=== PATIENT | male | born 1975 | race Caucasian/White ===

== ENCOUNTER 2023-07-22 11:34 | Outpatient (OUT) | payer MEDICARE, SELFPAY ==
[2023-07-22 12:06] LABS: Basophils Percent Auto 0.4 % (0.2-2.0); Eosinophils Absolute Auto 0.2 10^3/uL (0.0-0.7); Eosinophils Percent Auto 2.2 % (0.9-7.0); Hematocrit 50.4 % (42.0-54.0); Hemoglobin 16.5 g/dL (14.0-18.0); Immature Granulocytes Abs Auto 0.02 10^3/uL (0.00-0.03); Immature Granulocytes Pct Auto 0.3 % (0.0-0.5); Lymphocytes Absolute Auto 2.8 10^3/uL (1.2-3.8); Lymphocytes Percent Auto 38.8 % (20.5-60.0); Mean Corpuscular HGB Conc 32.7 g/dL (29.9-35.2); Mean Corpuscular Volume 88.7 fL (80.0-94.0); Mean Platelet Volume 9.8 fL (9.5-13.5); Monocytes Absolute Auto 0.4 10^3/uL (0.3-0.8); Monocytes Percent Auto 5.5 % (1.7-12.0); Neutrophils Absolute Auto 3.8 10^3/uL (1.4-6.5); Neutrophils Percent Auto 52.8 % (43.0-75.0); Platelet Count 197 10^3/uL (150-450); Red Blood Count 5.68 10^6/uL (4.70-6.10); Red Cell Distribution Width 12.9 % (11.0-15.0); White Blood Count 7.2 10^3/uL (4.0-11.0)
[2023-07-22 12:59] LABS: Estimated Average Glucose 108 mg/dL; Glycohemoglobin A1C 5.4 % (4.5-6.2)
[2023-07-22 13:18] LABS: Alanine Aminotransferase 42 U/L (16-63); Albumin Globulin Ratio 0.9; Albumin Level 3.4 g/dL (3.4-5.0); Alkaline Phosphatase 80 U/L (46-116); Anion Gap 11.6; Aspartate Amino Transferase 22 U/L (15-37); BUN Creatinine Ratio 19.1; Bilirubin Total 0.8 mg/dL (0.2-1.0); Calcium 9.4 mg/dL (8.5-10.1); Chloride 104 mmol/L (98-107); Chol HDL Ratio 5.1; Cholesterol 147 mg/dL (<=200); Estimated GFR (African America >60 (>=60); Estimated GFR (Non-African Ame >60 (>=60); Free T3 2.76 pg/mL (2.18-3.98); Globulin 3.7 g/dL; Glucose 122 mg/dL (74-106); HDL Cholesterol 29 mg/dL (40-60); Potassium 4.6 mmol/L (3.5-5.1); Sodium 139 mmol/L (136-145); Total Protein 7.1 g/dL (6.4-8.2); Triglycerides 160 mg/dL (<=150); Uric Acid 5.8 mg/dL (3.5-7.2)
[2023-07-22 13:28] LABS: Prostate Specific Antigen Scrn 3.54 ng/mL (<=4.00)
[2023-07-24 16:07] LABS: Insulin 39.6 uIU/mL (2.6-24.9)
== END 2023-07-22 11:35 | disposition home or self-care (01) ==
LOC: LAB 11:36
PROVIDERS: PCP Nurse Practitioner Family; Visit Provider Nurse Practitioner Family
DX: E78.5 Hyperlipidemia, unspecified (principal); R97.20 Elevated prostate specific antigen [PSA]; E03.9 Hypothyroidism, unspecified; Z68.43 Body mass index [BMI] 50.0-59.9, adult
CPT/HCPCS: 36415; 80053; 80061; 83036; 83525; 84436; 84443; 84481; 84550; 85025; G0103

== ENCOUNTER 2024-05-10 11:11 | Outpatient (OUT) | payer MEDICARE, SELFPAY ==
--- NOTE | 2024-05-10 11:21 | XR_ITS ---
[facility] [place] [id number] Patient Name: DINAH SANTIAGO MRN: [id number] date: 1975 Sex: M Assigned Patient Location: RAD Current Patient Location: RAD Accession/Order Number: [id number] Exam Date: 05/10/2024 11:27 Report Date: 05/10/2024 12:55 At the request of: GLENN SPENCER Procedure: XR forearm LT 2V PROCEDURE: XR wrist RT min 3V, XR forearm LT 2V COMPARISON: None. HISTORY: Right Wrist Pain FINDINGS: BONES:No acute fracture or dislocation. Minimal degenerative changes of the elbow. SOFT TISSUES:Negative. No visible soft tissue swelling. EFFUSION:None visible. OTHER: No abnormality in the region of the patient's palpable abnormality demarcated with the BB marker along the radial distal forearm XR/XR forearm LT 2V IMPRESSION: No acute abnormality of the wrist or forearm Electronically authenticated by: CHER MTZ Date: 05/10/2024 12:55
--- NOTE | 2024-05-10 11:21 | XR_ITS ---
[facility] [place] [id number] Patient Name: DINAH SANTIAGO MRN: [id number] date: 1975 Sex: M Assigned Patient Location: RAD Current Patient Location: RAD Accession/Order Number: [id number] Exam Date: 05/10/2024 11:27 Report Date: 05/10/2024 12:55 At the request of: GLENN SPENCER Procedure: XR wrist RT min 3V PROCEDURE: XR wrist RT min 3V, XR forearm LT 2V COMPARISON: None. HISTORY: Right Wrist Pain FINDINGS: BONES:No acute fracture or dislocation. Minimal degenerative changes of the elbow. SOFT TISSUES:Negative. No visible soft tissue swelling. EFFUSION:None visible. OTHER: No abnormality in the region of the patient's palpable abnormality demarcated with the BB marker along the radial distal forearm XR/XR wrist RT min 3V IMPRESSION: No acute abnormality of the wrist or forearm Electronically authenticated by: CHER MTZ Date: 05/10/2024 12:55
== END 2024-05-10 11:12 | disposition home or self-care (01) ==
LOC: RAD 11:14
PROVIDERS: PCP Nurse Practitioner Family; Visit Provider Nurse Practitioner Family
DX: M25.531 Pain in right wrist (principal); M79.602 Pain in left arm
CPT/HCPCS: 73090; 73110

== ENCOUNTER 2024-06-09 08:01 | Outpatient (OUT) | payer MEDICARE, SELFPAY ==
--- NOTE | 2024-06-09 | US_ITS ---
The [address] [address] Patient Name: DINAH SANTIAGO MRN: [id number] date: 1975 Sex: M Assigned Patient Location: US Current Patient Location: US Accession/Order Number: [id number] Exam Date: 06/09/2024 09:22 Report Date: 06/09/2024 09:25 At the request of: GLENN SPENCER Procedure: US renal bladder US renal bladder 06/09/2024 9:01 AM SIGNS AND SYMPTOMS: ^R30.0 DYSURIA COMPARISON: None. FINDINGS: Right kidney measures 10.8 x 5.7 x 6.5 cm. The right renal cortex measures 1.3 cm in thickness. There is no hydronephrosis or mass. There is an echogenic focus with thick artifact measuring up to 2 mm in the right renal collecting system near the interpolar region possibly representing a small stone. Left kidney measures 11.9 x 5.3 x 6.1 cm . The left renal cortex measures 1.6 cm in thickness. There is no hydronephrosis or mass. The urinary bladder is morphologically normal. No free fluid is seen in the pelvis. Before voiding, the bladder measures 3.5 x 3.8 x 4.3 cm, which corresponds to an estimated volume of 40.5 mL . After voiding no post void residual is visualized. US/US renal bladder IMPRESSION: No hydronephrosis or mass. No visible post void residual within the bladder. There is an echogenic focus with thick artifact measuring up to 2 mm in the right renal collecting system near the interpolar region possibly representing a small stone. Impression dictated by: Denis Lee M.D.06/09/2024 9:25 AM Dictation Location: [place] [address] Electronically authenticated by: [id number] Y Date: 06/09/2024 09:25
--- OUTSIDE RECORDS SUMMARY | 2024-06-09 08:03 | XMS_ITS | CCD ---
Author Organization [place] [employer] Inform ion Partnership [facility] Care Team Providers Care Rn Family Name Role Phone GLENN SPENCER Admitting Unavailable GLENN SPENCER Attending Unavailable TJ, GLENN Primary Care Unavailable TJ, GLENN Consulting Unavailable TJ, GLENN Admitting Unavailable TJ, GLENN Attending Unavailable TJ, GLENN Primary Care Unavailable TJ, GLENN Consulting Unavailable Allergies Allergy Classification Reported Allergen(s) Allergy Type Date of Onset Reaction(s) Facility (1 source) Penicillin Drug Allergy 12-28-2016 [facility] Repository Problems Active Problems Problem Classification Problem Date Documented Date Episodic/Chronic Diabetes mellitus without complication (2 sources) Other abnormal glucose; Translations: [Hyperglycemia, unspecified] Onset: 08-18-2021 Episodic Disorders of lipid metabolism (2 sources) Hyperlipidemia, unspecified; Translations: [Elevated Lipoprotein(a)] Onset: 08-18-2021 Chronic Immunizations and screening for infectious disease (1 source) Encounter for screening for infections with a predominantly sexual mode of transmission; Translations: [ENC SCREEN INFECTIONS SEXL TRANSMS] Onset: 08-01-2022 Episodic Malaise and fatigue (4 sources) Other fatigue; Translations: [OTHER FATIGUE] Onset: 07-23-2022 Episodic Other nutritional; endocrine; and metabolic disorders (1 source) Metabolic syndrome; Translations: [METABOLIC SYNDROME] Onset: 08-18-2021 Chronic Other screening for suspected conditions (not mental disorders or infectious disease) (1 source) Encounter for screening for malignant neoplasm of prostate; Translations: [ENC SCREEN MALIG NEOPLASM PROSTATE] Onset: 08-01-2022 Episodic Past or Other Problems Problem Classification Problem Date Documented Da te Episodic/Chronic Deficiency and other anemia (1 source) Anemia, unspecified; Translations: [ANEMIA UNSPECIFIED] Onset: 08-18-2021 Episodic Other non-traumatic joint disorders (1 source) Pain in unspecified joint; Translations: [PAIN IN UNSPECIFIED JOINT] Onset: 08-18-2021 Episodic Results Test Name Value Interpretation Reference Range Facility HEPATITIS PANEL, ACUTEon HBsAg Screen Negative Normal Negative [facility] Comment on above: Performed By: #### I NSULIN #### [facility] [address] [address] [address] Sonja Farris HCV AB Non-Reactive Normal Non Reactive [facility] Comment on above: Performed By: #### I NSULIN #### [facility] [address] [address] [address] Sonja Farris Hep A Ab, IgM Negative Normal Negative [facility] Comment on above: Performed By: #### I NSULIN #### [facility] [address] [address] [address] Sonja Farris Hep B Core Ab, IgM Negative Normal Negative [facility] Comment on above: Performed By: #### I NSULIN #### [facility] [address] [address] [address] Sonja Farris Interpretation: Comment Normal [facility] Comment on above: Result Comment: Not infected with HCV unless early or acute infection is suspected (which may be delayed in an immunocompromised individual), or other evidence exists to indicate HCV infection. Performed By: #### I NSULIN #### [facility] [address] [address] [address] Sonja Farris HERPES SIMPLEX 1/2 IGGon HSV 1 IgG, Type Spec 32.30 index Critically high 0.00-0.90 [facility] Comment on above: Result Comment: Nega tive <0.91 Equivocal 0.91 - 1.09 Positive >1.09 Note: Negative indicates no antibodies detected to HSV-1. Equivocal may suggest early infection. If clinically appropriate, retest at later date. Positive indicates antibodies detected to HSV-1. Performed By: #### H SV IGG #### [facility] [address] [address] [address] Sonja Farris HSV 2 IgG Type Spec <0.91 Normal 0.00-0.90 [facility] Comment on above: Result Comment: Nega tive <0.91 Equivocal 0.91 - 1.09 Positive >1.09 Note: Negative indicates no HSV-2 antibodies detected. Positive indicates HSV-2 antibodies detected. Equivocal and low positive HSV-2 screens (Index 0.91-5.00) may be false positive and are reflexed to supplemental testing in accordance with CDC guidelines. Performed By: #### H SV IGG #### [facility] [address] [place] [address] Dr. Sonja Farris HIV 1 AND 2 WITH REFLEXon HIV Screen 4th Generation wRfx Non-Reactive Normal Non Reactive [facility] Comment on above: Result Comment: HIV Negative HIV-1/HIV-2 antibodies and HIV-1 p24 antigen were NOT detected. There is no laboratory evidence of HIV infection. Performed By: #### H IV12 #### [facility] [address] [place] [address] Dr. Sonja Farris INSULINon 07-24-2022 Insulin 34.0 uIU/mL Critically high 2.6-24.9 [facility] Comment on above: Performed By: #### I NSULIN #### [facility] [address] [place] [address] Dr. Sonja Farris RPR QUANTon 07-24-2022 Rapid Plasma Reagin, Quant Non-Reactive Normal NonRea<1:1 [facility] Comment on above: Result Comment: Plea se Note: This test does not meet current guidelines for screening and diagnosis of syphilis. This test is intended for following treatment response in patients being treated for syphilis infection. To screen for syphilis infection, a reflex cascade that includes both RPR and a treponema-specific assay should be utilized, such as Treponema pallidum (Syphilis) Screening [place] (762669) or Rapid Plasma Reagin (RPR) Test With Reflex to Quantitative RPR and Confirmatory Treponema pallidum Antibodies (553290). Performed By: #### I NSULIN #### [facility] [address] [place] [address] Dr. Sonja Farris CBC AUTO DIFFon 07-23-2022 BASO # 0.0 103/ul Normal 0.0-0.1 [facility] Comment on above: Performed By: #### I NSULIN #### [facility] [address] [place] [address] Dr. Sonja Farris Basophils/100 WBC (Bld) 0.2 % Normal 0.2-2.0 [facility] Comment on above: Performed By: #### I NSULIN #### [facility] [address] [place] [address] Dr. Sonja Farris EO # 0.2 103/ul Normal 0.0-0.7 [facility] Comment on above: Performed By: #### I NSULIN #### [facility] [address] [place] [address] Dr. Sonja Farris Eosinophils/100 WBC (Bld) 2.3 % Normal 0.9-7.0 [facility] Comment on above: Performed By: #### I NSULIN #### [facility] [address] [place] [address] Dr. Sonja Farris Erythrocyte distribution width (RBC) [Ratio] 12.6 % Normal 11.0-15.0 [facility] Comment on above: Performed By: #### I NSULIN #### [facility] [address] [place] [address] Dr. Sonja Farris Hematocrit (Bld) [Volume fraction] 48.2 % Normal 42.0-54.0 [facility] Comment on above: Performed By: #### I NSULIN #### [facility] [address] [place] [address] Dr. Sonja Farris Hemoglobin (Bld) [Mass/Vol] 16.4 g/dL Normal 14.0-18.0 [facility] Comment on above: Performed By: #### I NSULIN #### [facility] [address] [place] [address] Dr. Sonja Farris IG # 0.03 10e3/ul Normal 0.00-0.03 [facility] Comment on above: Performed By: #### I NSULIN #### [facility] [address] [place] [address] Dr. Sonja Farris IG % 0.3 % Normal 0.0-0.5 [facility] Comment on above: Performed By: #### I NSULIN #### [facility] [address] [address] [address] Sonja Farris LYMPH # 4.1 103/ul Critically high 1.2-3.8 [facility] Comment on above: Performed By: #### I NSULIN #### [facility] [address] [place] [address] Dr. Sonja Farris Lymphocytes/100 WBC (Bld) 47.0 % Normal 20.5-60.0 [facility] Comment on above: Performed By: #### I NSULIN #### [facility] [address] [place] [address] Dr. Sonja Farris MANUAL DIFF REQ NO Normal [facility] Comment on above: Performed By: #### I NSULIN #### [facility] [address] [place] [address] Dr. Sonja Farris MCH (RBC) [Entitic mass] 29.5 pg Normal 25.9-34.0 [facility] Comment on above: Performed By: #### I NSULIN #### [facility] [address] [place] [address] Dr. Sonja Farris MCHC (RBC) [Mass/Vol] 34.0 g/dL Normal 29.9-35.2 [facility] Comment on above: Performed By: #### I NSULIN #### [facility] [address] [place] [address] Dr. Sonja Farris MCV (RBC) [Entitic vol] 86.7 fL Normal 80.0-94.0 [facility] Comment on above: Performed By: #### I NSULIN #### [facility] [address] [place] [address] Dr. Sonja Farris MONO # 0.5 103/ul Normal 0.3-0.8 [facility] Comment on above: Performed By: #### I NSULIN #### [facility] [address] [place] [address] Dr. Sonja Farris Monocytes/100 WBC (Bld) 5.8 % Normal 1.7-12.0 [facility] Comment on above: Performed By: #### I NSULIN #### [facility] [address] [address] [address] Sonja Farris NEUT # 3.9 103/ul Normal 1.4-6.5 [facility] Comment on above: Performed By: #### I NSULIN #### [facility] [address] [place] [address] Dr. Sonja Farris Neutrophils/100 WBC (Bld) 44.4 % Normal 43.0-75.0 [facility] Comment on above: Performed By: #### I NSULIN #### [facility] [address] [place] [address] Dr. Sonja Farris Platelet mean volume (Bld) [Entitic vol] 9.9 fL Normal 9.5-13.5 [facility] Comment on above: Performed By: #### I NSULIN #### [facility] [address] [place] [address] Dr. Sonja Farris PLT 210 103/ul Normal 150-450 [facility] Comment on above: Performed By: #### I NSULIN #### [facility] [address] [place] [address] Dr. Sonja Farris RBC 5.56 106/ul Normal 4.70-6.10 [facility] Comment on above: Performed By: #### I NSULIN #### [facility] [address] [place] [address] Dr. Sonja Farris WBC 8.8 103/ul Normal 4.0-11.0 [facility] Comment on above: Performed By: #### I NSULIN #### [facility] [address] [place] [address] Dr. Sonja Farris FREE THYROXINE INDEX T7on FTI 2.28 Normal 1.30-4.50 [facility] Comment on above: Performed By: #### L IPID, URIC, T7, CMP, TSH #### [facility] [address] [place] [address] Dr. Sonja Farris T3U 35.0 % Normal 33.0-40.0 [facility] Comment on above: Performed By: #### L IPID, URIC, T7, CMP, TSH #### [facility] [address] [address] [address] Sonja Farris T4 [Mass/Vol] 6.50 ug/dL Normal 4.50-12.10 [facility] Comment on above: Performed By: #### L IPID, URIC, T7, CMP, TSH #### [facility] [address] [address] [address] Sonja Farris GLYCOHEMOGLOBIN A1Con 2022 ADA RECOMMENDATION SEE BELOW Normal [facility] Comment on above: Result Comment: ADA RECOMMENDED LIMIT 4.0 - 6.0 ADA THERAPEUTIC TARGET < 7.0 ACTION SUGGESTED > 7.0 Performed By: #### I NSULIN #### [facility] [address] [place] [address] Dr. Sonja Farris Glucose [Mass/Vol] 123 mg/dL Normal [facility] Comment on above: Performed By: #### I NSULIN #### [facility] [address] [place] [address] Dr. Sonja Farris HbA1c (Bld) [Mass fraction] 5.9 % Normal 4.5-6.2 [facility] Comment on above: Performed By: #### I NSULIN #### [facility] [address] [place] [address] Dr. Sonja Farris LIPID PROFILEon 07-23-2022 CHOL-HDL RATIO NORM SEE BELOW Normal [facility] Comment on above: Result Comment: 3.3 - 4.4 LOW RISK 4.4 - 7.1 AVERAGE RISK 7.1 - 11.0 MODERATE RISK >11.0 HIGH RISK Performed By: #### L IPID, URIC, T7, CMP, TSH #### [facility] [address] [address] [address] Sonja Farris Cholesterol [Mass/Vol] 163 mg/dL Normal <=200 [facility] Comment on above: Performed By: #### L IPID, URIC, T7, CMP, TSH #### [facility] [address] [address] [address] Sonja Farris Cholesterol in HDL [Mass/Vol] 28 mg/dL Critically low 40-60 [facility] Comment on above: Performed By: #### L IPID, URIC, T7, CMP, TSH #### [facility] [address] [address] [address] Sonja Farris Cholesterol in LDL [Mass/Vol] 89.8 mg/dL Normal [facility] Comment on above: Performed By: #### L IPID, URIC, T7, CMP, TSH #### [facility] [address] [address] [address] Sonja Farris Cholesterol.total/Ch olesterol in HDL [Mass ratio] 5.8 {ratio} Normal [facility] Comment on above: Performed By: #### L IPID, URIC, T7, CMP, TSH #### [facility] [address] [address] [address] Sonja Farris HDL NORMAL > or = 60 mg/dl - LO W CARDIOVASCULAR RISK <40 mg/dl - HIGH CARDIOVASCULAR RISK Normal [facility] Comment on above: Performed By: #### L IPID, URIC, T7, CMP, TSH #### [facility] [address] [address] [address] Sonja Farris LDL CALC NORMAL SEE BELOW Normal [facility] Comment on above: Result Comment: <100 mg/dl OPTIMAL 100 - 129 mg/dl NEAR OR ABOVE OPTIMAL 130 - 159 mg/dl BORDERLINE HIGH 160 - 189 mg/dl HIGH >190 mg/dl VERY HIGH Performed By: #### L IPID, URIC, T7, CMP, TSH #### [facility] [address] [address] [address] Sonja Farris Triglyceride [Mass/Vol] 226 mg/dL Critically high <=150 [facility] Comment on above: Performed By: #### L IPID, URIC, T7, CMP, TSH #### [facility] [address] [address] [address] Sonja Farris VLDL CALC 45.2 mg/dL Normal [facility] Comment on above: Performed By: #### L IPID, URIC, T7, CMP, TSH #### [facility] [address] [address] [address] Sonja Farris PROF 14(COMP METB)on 023 Albumin [Mass/Vol] 3.4 g/dL Normal 3.4-5.0 [facility] Comment on above: Performed By: #### L IPID, URIC, T7, CMP, TSH #### [facility] [address] [place] [address] Dr. Sonja Farris Albumin/Globulin [Mass ratio] 0.9 {ratio} Normal [facility] Comment on above: Performed By: #### L IPID, URIC, T7, CMP, TSH #### [facility] [address] [place] [address] Dr. Sonja Farris ALP [Catalytic activity/Vol] 72 U/L Normal 46-116 [facility] Comment on above: Performed By: #### L IPID, URIC, T7, CMP, TSH #### [facility] [address] [place] [address] Dr. Sonja Farris ALT [Catalytic activity/Vol] 49 U/L Normal 16-63 [facility] Comment on above: Performed By: #### L IPID, URIC, T7, CMP, TSH #### [facility] [address] [address] [address] Sonja Farris Anion gap [Moles/Vol] 11.5 mmol/L Normal [facility] Comment on above: Performed By: #### L IPID, URIC, T7, CMP, TSH #### [facility] [address] [place] [address] Dr. Sonja Farris AST [Catalytic activity/Vol] 20 U/L Normal 15-37 [facility] Comment on above: Performed By: #### L IPID, URIC, T7, CMP, TSH #### [facility] [address] [place] [address] Dr. Sonja Farris Bilirubin [Mass/Vol] 0.5 mg/dL Normal 0.2-1.0 [facility] Comment on above: Performed By: #### L IPID, URIC, T7, CMP, TSH #### [facility] [address] [place] [address] Dr. Sonja Farris Calcium [Mass/Vol] 8.9 mg/dL Normal 8.5-10.1 [facility] Comment on above: Performed By: #### L IPID, URIC, T7, CMP, TSH #### [facility] [address] [address] [address] Sonja Farris Chloride [Moles/Vol] 104 mmol/L Normal 98-107 [facility] Comment on above: Performed By: #### L IPID, URIC, T7, CMP, TSH #### [facility] [address] [address] [address] Sonja Farris CO2 [Moles/Vol] 25.7 mmol/L Normal 21.0-32.0 [facility] Comment on above: Performed By: #### L IPID, URIC, T7, CMP, TSH #### [facility] [address] [address] [address] Sonja Farris Creatinine [Mass/Vol] 0.84 mg/dL Normal 0.70-1.30 [facility] Comment on above: Performed By: #### L IPID, URIC, T7, CMP, TSH #### [facility] [address] [address] [address] Sonja Farris EGFR-AF KYRGYZ >60 Normal >=60 [facility] Comment on above: Performed By: #### L IPID, URIC, T7, CMP, TSH #### [facility] [address] [address] [address] Sonja Farris EGFR-NON AF KYRGYZ >60 Normal >=60 [facility] Comment on above: Performed By: #### L IPID, URIC, T7, CMP, TSH #### [facility] [address] [address] [address] Sonja Farris Globulin (S) [Mass/Vol] 4.0 g/dL Normal [facility] Comment on above: Performed By: #### L IPID, URIC, T7, CMP, TSH #### [facility] [address] [address] [address] Sonja Farris Glucose [Mass/Vol] 114 mg/dL Critically high 74-106 [facility] Comment on above: Performed By: #### L IPID, URIC, T7, CMP, TSH #### [facility] [address] [place] [address] Dr. Sonja Farris Potassium [Moles/Vol] 4.2 mmol/L Normal 3.5-5.1 [facility] Comment on above: Performed By: #### L IPID, URIC, T7, CMP, TSH #### [facility] [address] [place] [address] Dr. Sonja Farris Protein [Mass/Vol] 7.4 g/dL Normal 6.4-8.2 [facility] Comment on above: Performed By: #### L IPID, URIC, T7, CMP, TSH #### [facility] [address] [place] [address] Dr. Sonja Farris Sodium [Moles/Vol] 137 mmol/L Normal 136-145 [facility] Comment on above: Performed By: #### L IPID, URIC, T7, CMP, TSH #### [facility] [address] [place] [address] Dr. Sonja Farris Urea nitrogen [Mass/Vol] 19.0 mg/dL Critically high 7.0-18.0 [facility] Comment on above: Performed By: #### L IPID, URIC, T7, CMP, TSH #### [facility] [address] [place] [address] Dr. Sonja Farris Urea nitrogen/Creatinine [Mass ratio] 22.6 mg/mg Normal [facility] Comment on above: Performed By: #### L IPID, URIC, T7, CMP, TSH #### [facility] [address] [place] [address] Dr. Sonja Farris TSHon 07-23-2022 TSH 1.865 uIU/mL Normal 0.358-3.740 [facility] Comment on above: Performed By: #### L IPID, URIC, T7, CMP, TSH #### [facility] [address] [place] [address] Dr. Sonja Farris URIC ACID SERUMon 07-23-2022 Urate [Mass/Vol] 5.9 mg/dL Normal 3.5-7.2 [facility] Comment on above: Performed By: #### L IPID, URIC, T7, CMP, TSH #### [facility] [address] [place] [address] Dr. Sonja Farris INSULINon 08-12-2021 Insulin 60.4 uIU/mL Critically high 2.6-24.9 [facility] Comment on above: Performed By: #### I NSULIN #### [facility] [address] [place] [address] Dr. Sonja Farris CBC AUTO DIFFon 08-11-2021 BASO # 0.0 103/ul Normal 0.0-0.1 [facility] Comment on above: Performed By: #### I NSULIN #### [facility] [address] [place] [address] Dr. Sonja Farris Basophils/100 WBC (Bld) 0.4 % Normal 0.2-2.0 [facility] Comment on above: Performed By: #### I NSULIN #### [facility] [address] [place] [address] Dr. Sonja Farris EO # 0.3 103/ul Normal 0.0-0.7 [facility] Comment on above: Performed By: #### I NSULIN #### [facility] [address] [place] [address] Dr. Sonja Farris Eosinophils/100 WBC (Bld) 2.9 % Normal 0.9-7.0 [facility] Comment on above: Performed By: #### I NSULIN #### [facility] [address] [place] [address] Dr. Sonja Farris Erythrocyte distribution width (RBC) [Ratio] 12.7 % Normal 11.0-15.0 [facility] Comment on above: Performed By: #### I NSULIN #### [facility] [address] [place] [address] Dr. Sonja Farris Hematocrit (Bld) [Volume fraction] 51.5 % Normal 42.0-54.0 [facility] Comment on above: Performed By: #### I NSULIN #### [facility] [address] [address] [address] Sonja Farris Hemoglobin (Bld) [Mass/Vol] 16.5 g/dL Normal 14.0-18.0 [facility] Comment on above: Performed By: #### I NSULIN #### [facility] [address] [address] [address] Sonja Farris IG # 0.03 10e3/ul Normal 0.00-0.03 [facility] Comment on above: Performed By: #### I NSULIN #### [facility] [address] [place] [address] Dr. Sonja Farris IG % 0.3 % Normal 0.0-0.5 [facility] Comment on above: Performed By: #### I NSULIN #### [facility] [address] [place] [address] Dr. Sonja Farris LYMPH # 4.0 103/ul Critically high 1.2-3.8 [facility] Comment on above: Performed By: #### I NSULIN #### [facility] [address] [place] [address] Dr. Sonja Farris Lymphocytes/100 WBC (Bld) 41.1 % Normal 20.5-60.0 [facility] Comment on above: Performed By: #### I NSULIN #### [facility] [address] [place] [address] Dr. Sonja Farris MANUAL DIFF REQ NO Normal [facility] Comment on above: Performed By: #### I NSULIN #### [facility] [address] [place] [address] Dr. Sonja Farris MCH (RBC) [Entitic mass] 29.2 pg Normal 25.9-34.0 [facility] Comment on above: Performed By: #### I NSULIN #### [facility] [address] [place] [address] Dr. Sonja Farris MCHC (RBC) [Mass/Vol] 32.0 g/dL Normal 29.9-35.2 [facility] Comment on above: Performed By: #### I NSULIN #### [facility] [address] [address] [address] Sojna Farris MCV (RBC) [Entitic vol] 91.0 fL Normal 80.0-94.0 [facility] Comment on above: Performed By: #### I NSULIN #### [facility] [address] [address] [address] Sonja Farris MONO # 0.6 103/ul Normal 0.3-0.8 [facility] Comment on above: Performed By: #### I NSULIN #### [facility] [address] [place] [address] Dr. Sonja Farris Monocytes/100 WBC (Bld) 5.8 % Normal 1.7-12.0 [facility] Comment on above: Performed By: #### I NSULIN #### [facility] [address] [place] [address] Dr. Sonja Farris NEUT # 4.9 103/ul Normal 1.4-6.5 [facility] Comment on above: Performed By: #### I NSULIN #### [facility] [address] [place] [address] Dr. Sonja Farris Neutrophils/100 WBC (Bld) 49.5 % Normal 43.0-75.0 [facility] Comment on above: Performed By: #### I NSULIN #### [facility] [address] [place] [address] Dr. Sonja Farris Platelet mean volume (Bld) [Entitic vol] 9.4 fL Critically low 9.5-13.5 [facility] Comment on above: Performed By: #### I NSULIN #### [facility] Laboratory [address] [place] [address] Dr. Sonja Farris PLT 216 103/ul Normal 150-450 [facility] Comment on above: Performed By: #### I NSULIN #### [facility] [address] [place] [address] Dr. Sonja Farris RBC 5.66 106/ul Normal 4.70-6.10 [facility] Comment on above: Performed By: #### I NSULIN #### [facility] [address] [address] [address] Sonja Farris WBC 9.8 103/ul Normal 4.0-11.0 [facility] Comment on above: Performed By: #### I NSULIN #### [facility] [address] [place] [address] Dr. Sonja Farris GLYCOHEMOGLOBIN A1Con 2021 ADA RECOMMENDATION SEE BELOW Normal [facility] Comment on above: Result Comment: ADA RECOMMENDED LIMIT 4.0 - 6.0 ADA THERAPEUTIC TARGET < 7.0 ACTION SUGGESTED > 7.0 Performed By: #### I NSULIN #### [facility] [address] [address] [address] Sonja Farris Glucose [Mass/Vol] 117 mg/dL Normal [facility] Comment on above: Performed By: #### I NSULIN #### [facility] [address] [place] [address] Dr. Sonja Farris HbA1c (Bld) [Mass fraction] 5.7 % Normal 4.5-6.2 [facility] Comment on above: Performed By: #### I NSULIN #### [facility] [address] [place] [address] Dr. Sonja Farris LIPID PROFILEon 08-11-2021 CHOL-HDL RATIO NORM SEE BELOW Normal [facility] Comment on above: Result Comment: 3.3 - 4.4 LOW RISK 4.4 - 7.1 AVERAGE RISK 7.1 - 11.0 MODERATE RISK >11.0 HIGH RISK Performed By: #### I NSULIN #### [facility] [address] [place] [address] Dr. Sonja Farris Cholesterol [Mass/Vol] 152 mg/dL Normal <=200 [facility] Comment on above: Performed By: #### I NSULIN #### [facility] [address] [place] [address] Dr. Sonja Farris Cholesterol in HDL [Mass/Vol] 26 mg/dL Critically low 40-60 [facility] Comment on above: Performed By: #### I NSULIN #### [facility] [address] [place] [address] Dr. Sonja Farris Cholesterol in LDL [Mass/Vol] 85.2 mg/dL Normal [facility] Comment on above: Performed By: #### I NSULIN #### [facility] [address] [address] [address] Sonja Farris Cholesterol.total/Ch olesterol in HDL [Mass ratio] 5.8 {ratio} Normal [facility] Comment on above: Performed By: #### I NSULIN #### [facility] [address] [address] [address] Sonja Farris HDL NORMAL > or = 60 mg/dl - LO W CARDIOVASCULAR RISK <40 mg/dl - HIGH CARDIOVASCULAR RISK Normal [facility] Comment on above: Performed By: #### I NSULIN #### [facility] [address] [address] [address] Sonja Farris LDL CALC NORMAL SEE BELOW Normal [facility] Comment on above: Result Comment: <100 mg/dl OPTIMAL 100 - 129 mg/dl NEAR OR ABOVE OPTIMAL 130 - 159 mg/dl BORDERLINE HIGH 160 - 189 mg/dl HIGH >190 mg/dl VERY HIGH Performed By: #### I NSULIN #### [facility] [address] [address] [address] Sonja Farris Triglyceride [Mass/Vol] 204 mg/dL Critically high <=150 [facility] Comment on above: Performed By: #### I NSULIN #### [facility] [address] [place] [address] Dr. Sonja Farris VLDL CALC 40.8 mg/dL Normal [facility] Comment on above: Performed By: #### I NSULIN #### [facility] [address] [address] [address] Sonja Farris PROF 14(COMP METB)on 022 Albumin [Mass/Vol] 3.6 g/dL Normal 3.4-5.0 [facility] Comment on above: Performed By: #### L IPID, URIC, CMP #### [facility] [address] [address] [address] Sonja Farris Albumin/Globulin [Mass ratio] 1.0 {ratio} Normal [facility] Comment on above: Performed By: #### L IPID, URIC, CMP #### [facility] [address] [address] [address] Sonja Farris ALP [Catalytic activity/Vol] 65 U/L Normal 46-116 [facility] Comment on above: Performed By: #### L IPID, URIC, CMP #### [facility] [address] [address] [address] Sonja Farris ALT [Catalytic activity/Vol] 43 U/L Normal 16-63 [facility] Comment on above: Performed By: #### L IPID, URIC, CMP #### [facility] [address] [address] [address] Sonja Farris Anion gap [Moles/Vol] 14.6 mmol/L Normal [facility] Comment on above: Performed By: #### L IPID, URIC, CMP #### [facility] [address] [address] [address] Sonja Farris AST [Catalytic activity/Vol] 19 U/L Normal 15-37 [facility] Comment on above: Performed By: #### L IPID, URIC, CMP #### [facility] [address] [address] [address] Sonja Farris Bilirubin [Mass/Vol] 0.4 mg/dL Normal 0.2-1.0 [facility] Comment on above: Performed By: #### L IPID, URIC, CMP #### [facility] [address] [address] [address] Sonja Farris Calcium [Mass/Vol] 8.4 mg/dL Critically low 8.5-10.1 [facility] Comment on above: Performed By: #### L IPID, URIC, CMP #### [facility] [address] [address] [address] Sonja Farris Chloride [Moles/Vol] 101 mmol/L Normal 98-107 [facility] Comment on above: Performed By: #### L IPID, URIC, CMP #### [facility] [address] [address] [address] Sonja Farris CO2 [Moles/Vol] 27.1 mmol/L Normal 21.0-32.0 [facility] Comment on above: Performed By: #### L IPID, URIC, CMP #### [facility] [address] [address] [address] Sonja Farris Creatinine [Mass/Vol] 0.84 mg/dL Normal 0.70-1.30 [facility] Comment on above: Performed By: #### L IPID, URIC, CMP #### [facility] [address] [address] [address] Sonja Farris EGFR-AF KYRGYZ >60 Normal >=60 [facility] Comment on above: Performed By: #### L IPID, URIC, CMP #### [facility] [address] [address] [address] Sonja Farris EGFR-NON AF KYRGYZ >60 Normal >=60 [facility] Comment on above: Performed By: #### L IPID, URIC, CMP #### [facility] [address] [address] [address] Sonja Farris Globulin (S) [Mass/Vol] 3.7 g/dL Normal [facility] Comment on above: Performed By: #### L IPID, URIC, CMP #### [facility] [address] [address] [address] Sonja Farris Glucose [Mass/Vol] 121 mg/dL Critically high 74-106 [facility] Comment on above: Performed By: #### L IPID, URIC, CMP #### [facility] [address] [address] [address] Sonja Farris Potassium [Moles/Vol] 4.7 mmol/L Normal 3.5-5.1 [facility] Comment on above: Performed By: #### L IPID, URIC, CMP #### [facility] [address] [address] [address] Sonja Farris Protein [Mass/Vol] 7.3 g/dL Normal 6.1-8.2 [facility] Comment on above: Performed By: #### L IPID, URIC, CMP #### [facility] [address] [address] [address] Sonja Farris Sodium [Moles/Vol] 138 mmol/L Normal 136-145 [facility] Comment on above: Performed By: #### L IPID, URIC, CMP #### [facility] [address] [address] [address] Sonja Farris Urea nitrogen [Mass/Vol] 17.0 mg/dL Normal 7.0-18.0 [facility] Comment on above: Performed By: #### L IPID, URIC, CMP #### [facility] [address] [address] [address] Sonja Farris Urea nitrogen/Creatinine [Mass ratio] 20.2 mg/mg Normal [facility] Comment on above: Performed By: #### L IPID, URIC, CMP #### [facility] [address] [place] [address] Dr. Sonja Farris URIC ACID SERUMon 08-11-2021 Urate [Mass/Vol] 5.8 mg/dL Normal 3.5-8.5 [facility] Comment on above: Performed By: #### L IPID, URIC, CMP #### [facility] [address] [place] [address] Dr. Sonja Farris Encounters Encounter Date Encounter Type Care Provider Facility Start: 07-23-2022 End: 07-24-2022 ambulatory GLENN SPENCER Facility:[facility] Start: 08-18-2021 Encounter for genera l adult medical examination without abnormal findings GLENN SPENCER [facility] Start: 08-11-2021 End: 08-12-2021 ambulatory GLENN SPENCER Facility:[facility] Start: 08-11-2021 End: 08-12-2021 Encounter for general adult medical examination without abnormal findings GLENN SPENCER Facility:[facility] Procedures Date Procedure Procedure Detail Performing Clinician Start: 07-23-2022 PSA screening [facility] Comment on above: Performed By: #### I NSULIN #### [facility] [address] [place] [address] Dr. Sonja Farris Start: 08-11-2021 PSA screening [facility] Comment on above: Performed By: #### I NSULIN #### [facility] [address] [place], [place] [address] Dr. Sonja Farris Payers Date Payer Category Payer Unknown [id number] 1975 Unknown [id number] 1959 Medicare [id number] 1959 Unknown [id number] Summary Purpose Family History No Family History Records Found Advance Directives No Advanced Directives Records Found Additional Source Comments (unrecognized sect ion and content) No Status Records Found INFORMATION SOURCE (unrecogn ized section and content) DATE CREATED AUTHOR 08/01/2022 [facility] FOR RECORDS PERTAINING TO PATIENTS WHO ARE OR HAVE BEEN ENROLLED IN A CHEMICAL DEPENDENCY/SUBSTANCEABUSE PROGRAM, SOME INFORMATION MAY BE OMITTED. This clinical summary was aggregated from multiple sources. Caution should be exercised in using it in the provision of clinical care. This summary normalizes information from multiple sources, and as a consequence, information in this document may materially change the coding, format and clinical context of patient data. In addition, data may be omitted in some cases. CLINICAL DECISIONS SHOULD BE BASED ON THE PRIMARY CLINICAL RECORDS. [employer] provides no warranty or guarantee of the accuracy or completeness of information in this document.
[2024-06-09 09:04] LABS: Bilirubin Urine SMALL (NEGATIVE); Blood Urine NEGATIVE (NEGATIVE); Clarity Urine CLEAR (CLEAR); Color Urine YELLOW (YELLOW); Glucose Urine UA NEGATIVE (NEGATIVE); Ketones Urine TRACE mg/dL (NEGATIVE); Leukocyte Esterase Urine TRACE (NEGATIVE); Nitrite Urine NEGATIVE (NEGATIVE); Protein Urine NEGATIVE (NEG/TRACE); Specific Gravity Urine >=1.030 (1.005-1.025); pH Urine 5.5 (5.0-9.0)
[2024-06-09 09:55] LABS: Prostate Specific Antigen Scrn 4.07 ng/mL (<=4.00)
[2024-06-11 20:08] LABS: Neisseria gonorrhoeae, NAA Negative (Negative)
== END 2024-06-09 08:02 | disposition home or self-care (01) ==
LOC: US 08:01
PROVIDERS: PCP Nurse Practitioner Family; Visit Provider Nurse Practitioner Family
DX: R30.0 Dysuria (principal)
CPT/HCPCS: 36415; 76770; 81003; 87086; 87491; 87591; G0103

== ENCOUNTER 2024-12-04 13:25 | Outpatient (OUT) | payer MEDICARE, SELFPAY ==
--- OUTSIDE RECORDS SUMMARY | 2024-12-04 15:37 | XMS_ITS | CCD ---
Author Organization [facility] Inform ion Partnership [facility] Care Team Providers Care Tier In Name Role Phone KIERA AYON Admitting Unavailable NANY, KIERA Attending Unavailable NANY, KIERA Primary Care Unavailable NANY, KIERA Consulting Unavailable NANY, KIERA Admitting Unavailable NANY, KIERA Attending Unavailable NANY, KIERA Primary Care Unavailable NANY, KIERA Consulting Unavailable Nany, Kiera Jessica Attending Unavailable Nany, Kiera Jessica Admitting Unavailable Allergies Allergy Classification Reported Allergen(s) Allergy Type Date of Onset Reaction(s) Facility (1 source) Penicillin Drug Allergy 12-28-2016 [facility] Repository Problems Active Problems Problem Classification Problem [...] Test Name Value Interpretation Reference Range Facility Urine Cultureon 06-09-2024 Bacteria identified Cx Nom (U) <9,000 colonies/ml mixed bacterial skin contaminants 2 Days PERFORMED BY: [facility] [address] [place] [address] PATHOLOGIST BUTTON CUTTING MACHINE OPERATOR JUANA CHRISTIANSEN M.D. Normal [facility] Comment on above: Performed By: #### C UU #### [facility] [address] HEPATITIS PANEL, ACUTEon HBsAg Screen Negative Normal Negative [facility] Comment on above: Performed By: #### I NSULIN #### [facility] [address] [address] [address] Sonja Farris HCV AB Non-Reactive Normal Non Reactive [facility] Comment on above: Performed By: #### I NSULIN #### [facility] [address] [address] [address] Sonja Farris Hep A Ab, IgM Negative Normal Negative [facility] Comment on above: Performed By: #### I NSULIN #### [facility] [address] [address] [address] Sonja Farris Hep B Core Ab, IgM Negative Normal Negative [facility] Comment on above: Performed By: #### I NSULIN #### [facility] [address] [address] [address] Sonja Farris Interpretation: Comment Normal [facility] Comment on above: Result Comment: Not infected with HCV unless early or acute infection is suspected (which may be delayed in an immunocompromised individual), or other evidence exists to indicate HCV infection. Performed By: #### I NSULIN #### [facility] [address] [address] [address] Sonja Farris HERPES SIMPLEX 1/2 IGGon HSV 1 IgG, Type Spec 32.30 index Critically high 0.00-0.90 [facility] [place] Comment on above: Result Comment: Nega tive <0.91 Equivocal 0.91 - 1.09 Positive >1.09 Note: Negative indicates no antibodies detected to HSV-1. Equivocal may suggest early infection. If clinically appropriate, retest at later date. Positive indicates antibodies detected to HSV-1. Performed By: #### H SV IGG #### [facility] [address] [address] [address] Sonja Farris HSV 2 IgG Type Spec <0.91 Normal 0.00-0.90 [facility] Comment on above: Result Comment: Nega tive <0.91 Equivocal 0.91 - 1.09 Positive >1.09 Note: Negative indicates no HSV-2 antibodies detected. Positive indicates HSV-2 antibodies detected. Equivocal and low positive HSV-2 screens (Index 0.91-5.00) may be false positive and are reflexed to supplemental testing in accordance with CDC guidelines. Performed By: #### H SV IGG #### [facility] [address] [address] [address] Sonja Farris HIV 1 AND 2 WITH REFLEXon HIV Screen 4th Generation wRfx Non-Reactive Normal Non Reactive [facility] [place] Comment on above: Result Comment: HIV Negative HIV-1/HIV-2 antibodies and HIV-1 p24 antigen were NOT detected. There is no laboratory evidence of HIV infection. Performed By: #### H IV12 #### [facility] [address] [address] [address] Sonja Farris INSULINon 07-24-2022 Insulin 34.0 uIU/mL Critically high 2.6-24.9 [facility] Comment on above: Performed By: #### I NSULIN #### [facility] [address] [address] [address] Sonja Farris RPR QUANTon 07-24-2022 Rapid Plasma Reagin, Quant Non-Reactive Normal NonRea<1:1 [facility] [place] Comment on above: Result Comment: Plea se Note: This test does not meet current guidelines for screening and diagnosis of syphilis. This test is intended for following treatment response in patients being treated for syphilis infection. To screen for syphilis infection, a reflex cascade that includes both RPR and a treponema-specific assay should be utilized, such as Treponema pallidum (Syphilis) Screening Gage (268840) or Rapid Plasma Reagin (RPR) Test With Reflex to Quantitative RPR and Confirmatory Treponema pallidum Antibodies (277094). Performed By: #### I NSULIN #### [facility] [address] [place] [address] Dr. Sonja Farris CBC AUTO DIFFon 07-23-2022 BASO # 0.0 103/ul Normal 0.0-0.1 [facility] [place] Comment on above: Performed By: #### I NSULIN #### [facility] [address] [place] [address] Dr. Sonja Farris Basophils/100 WBC (Bld) 0.2 % Normal 0.2-2.0 [facility] [place] Comment on above: Performed By: #### I NSULIN #### [facility] [address] [place] [address] Dr. Sonja Farris EO # 0.2 103/ul Normal 0.0-0.7 [facility] [place] Comment on above: Performed By: #### I NSULIN #### [facility] [address] [place] [address] Dr. Sonja Farris Eosinophils/100 WBC (Bld) 2.3 % Normal 0.9-7.0 [facility] [place] Comment on above: Performed By: #### I NSULIN #### [facility] [address] [place] [address] Dr. Sonja Farris Erythrocyte distribution width (RBC) [Ratio] 12.6 % Normal 11.0-15.0 [facility] [place] Comment on above: Performed By: #### I NSULIN #### [facility] [address] [place] [address] Dr. Sonja Farris Hematocrit (Bld) [Volume fraction] 48.2 % Normal 42.0-54.0 [facility] [place] Comment on above: Performed By: #### I NSULIN #### [facility] [address] [place] [address] Dr. Sonja Farris Hemoglobin (Bld) [Mass/Vol] 16.4 g/dL Normal 14.0-18.0 [facility] [place] Comment on above: Performed By: #### I NSULIN #### [facility] [address] [place] [address] Dr. Sonja Farris IG # 0.03 10e3/ul Normal 0.00-0.03 [facility] [place] Comment on above: Performed By: #### I NSULIN #### [facility] [address] [place] [address] Dr. Sonja Farris IG % 0.3 % Normal 0.0-0.5 [facility] [place] Comment on above: Performed By: #### I NSULIN #### [facility] [address] [place] [address] Dr. Sonja Farris LYMPH # 4.1 103/ul Critically high 1.2-3.8 [facility] Comment on above: Performed By: #### I NSULIN #### [facility] [address] [place] [address] Dr. Sonja Farris Lymphocytes/100 WBC (Bld) 47.0 % Normal 20.5-60.0 [facility] [place] Comment on above: Performed By: #### I NSULIN #### [facility] [address] [place] [address] Dr. Sonja Farris MANUAL DIFF REQ NO Normal [facility] Comment on above: Performed By: #### I NSULIN #### [facility] [address] [place] [address] Dr. Sonja Farris MCH (RBC) [Entitic mass] 29.5 pg Normal 25.9-34.0 [facility] [place] Comment on above: Performed By: #### I NSULIN #### [facility] [address] [place] [address] Dr. Sonja Farris MCHC (RBC) [Mass/Vol] 34.0 g/dL Normal 29.9-35.2 [facility] [place] Comment on above: Performed By: #### I NSULIN #### [facility] [address] [place] [address] Dr. Sonja Farris MCV (RBC) [Entitic vol] 86.7 fL Normal 80.0-94.0 [facility] [place] Comment on above: Performed By: #### I NSULIN #### [facility] [address] [place] [address] Dr. Sonja Farris MONO # 0.5 103/ul Normal 0.3-0.8 [facility] [place] Comment on above: Performed By: #### I NSULIN #### [facility] [address] [place] [address] Dr. Sonja Farris Monocytes/100 WBC (Bld) 5.8 % Normal 1.7-12.0 [facility] [place] Comment on above: Performed By: #### I NSULIN #### [facility] [address] [place] [address] Dr. Sonja Farris NEUT # 3.9 103/ul Normal 1.4-6.5 [facility] [place] Comment on above: Performed By: #### I NSULIN #### [facility] [address] [place] [address] Dr. Sonja Farris Neutrophils/100 WBC (Bld) 44.4 % Normal 43.0-75.0 [facility] [place] Comment on above: Performed By: #### I NSULIN #### [facility] [address] [place] [address] Dr. Sonja Farris Platelet mean volume (Bld) [Entitic vol] 9.9 fL Normal 9.5-13.5 [facility] Comment on above: Performed By: #### I NSULIN #### [facility] [address] [place] [address] Dr. Sonja Farris PLT 210 103/ul Normal 150-450 [facility] Comment on above: Performed By: #### I NSULIN #### [facility] [address] [place] [address] Dr. Sonja Farris RBC 5.56 106/ul Normal 4.70-6.10 [facility] Comment on above: Performed By: #### I NSULIN #### [facility] [address] [place] [address] Dr. Sonja Farris WBC 8.8 103/ul Normal 4.0-11.0 [facility] Comment on above: Performed By: #### I NSULIN #### [facility] [address] [address] [address] Sonja Farris FREE THYROXINE INDEX T7on FTI 2.28 Normal 1.30-4.50 [facility] [place] Comment on above: Performed By: #### L IPID, URIC, T7, CMP, TSH #### [facility] [address] [address] [address] Sonja Farris T3U 35.0 % Normal 33.0-40.0 [facility] [place] Comment on above: Performed By: #### L IPID, URIC, T7, CMP, TSH #### [facility] [address] [place] [address] Dr. Sonja Farris T4 [Mass/Vol] 6.50 ug/dL Normal 4.50-12.10 [facility] Comment on above: Performed By: #### L IPID, URIC, T7, CMP, TSH #### [facility] [address] [place] [address] Dr. Sonja Farris GLYCOHEMOGLOBIN A1Con 2022 ADA RECOMMENDATION SEE BELOW Normal [facility] Comment on above: Result Comment: ADA RECOMMENDED LIMIT 4.0 - 6.0 ADA THERAPEUTIC TARGET < 7.0 ACTION SUGGESTED > 7.0 Performed By: #### I NSULIN #### [facility] [address] [place] [address] Dr. Sonja Farris Glucose [Mass/Vol] 123 mg/dL Normal [facility] Comment on above: Performed By: #### I NSULIN #### [facility] [address] [place] [address] Dr. Sonja Farris HbA1c (Bld) [Mass fraction] 5.9 % Normal 4.5-6.2 [facility] [place] Comment on above: Performed By: #### I NSULIN #### [facility] [address] [place] [address] Dr. Sonja Farris LIPID PROFILEon 07-23-2022 CHOL-HDL RATIO NORM SEE BELOW Normal [facility] Comment on above: Result Comment: 3.3 - 4.4 LOW RISK 4.4 - 7.1 AVERAGE RISK 7.1 - 11.0 MODERATE RISK >11.0 HIGH RISK Performed By: #### L IPID, URIC, T7, CMP, TSH #### [facility] [address] [address] [address] Sonja Farris Cholesterol [Mass/Vol] 163 mg/dL Normal <=200 [facility] [place] Comment on above: Performed By: #### L IPID, URIC, T7, CMP, TSH #### [facility] [address] [address] [address] Sonja Farris Cholesterol in HDL [Mass/Vol] 28 mg/dL Critically low 40-60 [facility] [place] Comment on above: Performed By: #### L IPID, URIC, T7, CMP, TSH #### [facility] [address] [address] [address] Sonja Farris Cholesterol in LDL [Mass/Vol] 89.8 mg/dL Normal [facility] [place] Comment on above: Performed By: #### L IPID, URIC, T7, CMP, TSH #### [facility] [address] [address] [address] Sonja Farris Cholesterol.total/Ch olesterol in HDL [Mass ratio] 5.8 {ratio} Normal [facility] [place] Comment on above: Performed By: #### L IPID, URIC, T7, CMP, TSH #### [facility] [address] [address] [address] Sonja Farris HDL NORMAL > or = 60 mg/dl - LO W CARDIOVASCULAR RISK <40 mg/dl - HIGH CARDIOVASCULAR RISK Normal [facility] Comment on above: Performed By: #### L IPID, URIC, T7, CMP, TSH #### [facility] [address] [address] [address] Sonja Farris LDL CALC NORMAL SEE BELOW Normal [facility] Comment on above: Result Comment: <100 mg/dl OPTIMAL 100 - 129 mg/dl NEAR OR ABOVE OPTIMAL 130 - 159 mg/dl BORDERLINE HIGH 160 - 189 mg/dl HIGH >190 mg/dl VERY HIGH Performed By: #### L IPID, URIC, T7, CMP, TSH #### [facility] [address] [address] [address] Sonja Farris Triglyceride [Mass/Vol] 226 mg/dL Critically high <=150 [facility] Comment on above: Performed By: #### L IPID, URIC, T7, CMP, TSH #### [facility] [address] [address] [address] Sonja Farris VLDL CALC 45.2 mg/dL Normal [facility] [place] Comment on above: Performed By: #### L IPID, URIC, T7, CMP, TSH #### [facility] [address] [address] [address] Sonja Farris PROF 14(COMP METB)on 023 Albumin [Mass/Vol] 3.4 g/dL Normal 3.4-5.0 [facility] Comment on above: Performed By: #### L IPID, URIC, T7, CMP, TSH #### [facility] [address] [place] [address] Dr. Sonja Farris Albumin/Globulin [Mass ratio] 0.9 {ratio} Normal [facility] [place] Comment on above: Performed By: #### L IPID, URIC, T7, CMP, TSH #### [facility] [address] [place] [address] Dr. Sonja Farris ALP [Catalytic activity/Vol] 72 U/L Normal 46-116 [facility] [place] Comment on above: Performed By: #### L IPID, URIC, T7, CMP, TSH #### [facility] [address] [address] [address] Sonja Farris ALT [Catalytic activity/Vol] 49 U/L Normal 16-63 [facility] [place] Comment on above: Performed By: #### L IPID, URIC, T7, CMP, TSH #### [facility] [address] [place] [address] Dr. Sonja Farris Anion gap [Moles/Vol] 11.5 mmol/L Normal [facility] [place] Comment on above: Performed By: #### L IPID, URIC, T7, CMP, TSH #### [facility] [address] [place] [address] Dr. Sonja Farris AST [Catalytic activity/Vol] 20 U/L Normal 15-37 [facility] [place] Comment on above: Performed By: #### L IPID, URIC, T7, CMP, TSH #### [facility] [address] [address] [address] Sonja Farris Bilirubin [Mass/Vol] 0.5 mg/dL Normal 0.2-1.0 [facility] [place] Comment on above: Performed By: #### L IPID, URIC, T7, CMP, TSH #### [facility] [address] [address] [address] Sonja Farris Calcium [Mass/Vol] 8.9 mg/dL Normal 8.5-10.1 [facility] Comment on above: Performed By: #### L IPID, URIC, T7, CMP, TSH #### [facility] [address] [place] [address] Dr. Sonja Farris Chloride [Moles/Vol] 104 mmol/L Normal 98-107 [facility] Comment on above: Performed By: #### L IPID, URIC, T7, CMP, TSH #### [facility] [address] [address] [address] Sonja Farris CO2 [Moles/Vol] 25.7 mmol/L Normal 21.0-32.0 [facility] Comment on above: Performed By: #### L IPID, URIC, T7, CMP, TSH #### [facility] [address] [address] [address] Sonja Farris Creatinine [Mass/Vol] 0.84 mg/dL Normal 0.70-1.30 [facility] [place] Comment on above: Performed By: #### L IPID, URIC, T7, CMP, TSH #### [facility] [address] [place] [address] Dr. Sonja Farris EGFR-AF SAMMARINESE >60 Normal >=60 [facility] Comment on above: Performed By: #### L IPID, URIC, T7, CMP, TSH #### [facility] [address] [address] [address] Sonja Farris EGFR-NON AF SAMMARINESE >60 Normal >=60 [facility] Comment on above: Performed By: #### L IPID, URIC, T7, CMP, TSH #### [facility] [address] [place] [address] Dr. Sonja Farris Globulin (S) [Mass/Vol] 4.0 g/dL Normal [facility] [place] Comment on above: Performed By: #### L IPID, URIC, T7, CMP, TSH #### [facility] [address] [place] [address] Dr. Sonja Farris Glucose [Mass/Vol] 114 mg/dL Critically high 74-106 [facility] Comment on above: Performed By: #### L IPID, URIC, T7, CMP, TSH #### [facility] [address] [place] [address] Dr. Sonja Farris Potassium [Moles/Vol] 4.2 mmol/L Normal 3.5-5.1 [facility] [place] Comment on above: Performed By: #### L IPID, URIC, T7, CMP, TSH #### [facility] [address] [place] [address] Dr. Sonja Farris Protein [Mass/Vol] 7.4 g/dL Normal 6.4-8.2 [facility] Comment on above: Performed By: #### L IPID, URIC, T7, CMP, TSH #### [facility] [address] [place] [address] Dr. Sonja Farris Sodium [Moles/Vol] 137 mmol/L Normal 136-145 [facility] Comment on above: Performed By: #### L IPID, URIC, T7, CMP, TSH #### [facility] [address] [place] [address] Dr. Sonja Farris Urea nitrogen [Mass/Vol] 19.0 mg/dL Critically high 7.0-18.0 [facility] [place] Comment on above: Performed By: #### L IPID, URIC, T7, CMP, TSH #### [facility] [address] [place] [address] Dr. Sonja Farris Urea nitrogen/Creatinine [Mass ratio] 22.6 mg/mg Normal [facility] [place] Comment on above: Performed By: #### L IPID, URIC, T7, CMP, TSH #### [facility] [address] [place] [address] Dr. Sonja Farris TSHon 07-23-2022 TSH 1.865 uIU/mL Normal 0.358-3.740 [facility] Comment on above: Performed By: #### L IPID, URIC, T7, CMP, TSH #### [facility] [address] [place] [address] Dr. Sonja Farris URIC ACID SERUMon 07-23-2022 Urate [Mass/Vol] 5.9 mg/dL Normal 3.5-7.2 [facility] Comment on above: Performed By: #### L IPID, URIC, T7, CMP, TSH #### [facility] [address] [place] [address] Dr. Sonja Farris INSULINon 08-12-2021 Insulin 60.4 uIU/mL Critically high 2.6-24.9 [facility] Comment on above: Performed By: #### I NSULIN #### [facility] [address] [place] [address] Dr. Sonja Farris CBC AUTO DIFFon 08-11-2021 BASO # 0.0 103/ul Normal 0.0-0.1 [facility] [place] Comment on above: Performed By: #### I NSULIN #### [facility] [address] [place] [address] Dr. Sonja Farris Basophils/100 WBC (Bld) 0.4 % Normal 0.2-2.0 [facility] Comment on above: Performed By: #### I NSULIN #### [facility] [address] [place] [address] Dr. Sonja Farris EO # 0.3 103/ul Normal 0.0-0.7 [facility] Comment on above: Performed By: #### I NSULIN #### [facility] [address] [place] [address] Dr. Sonja Farris Eosinophils/100 WBC (Bld) 2.9 % Normal 0.9-7.0 [facility] [place] Comment on above: Performed By: #### I NSULIN #### [facility] [address] [address] [address] Sonja Farris Erythrocyte distribution width (RBC) [Ratio] 12.7 % Normal 11.0-15.0 [facility] [place] Comment on above: Performed By: #### I NSULIN #### [facility] [address] [place] [address] Dr. Sonja Farris Hematocrit (Bld) [Volume fraction] 51.5 % Normal 42.0-54.0 [facility] [place] Comment on above: Performed By: #### I NSULIN #### [facility] [address] [place] [address] Dr. Sonja Farris Hemoglobin (Bld) [Mass/Vol] 16.5 g/dL Normal 14.0-18.0 [facility] [place] Comment on above: Performed By: #### I NSULIN #### [facility] [address] [place] [address] Dr. Sonja Farris IG # 0.03 10e3/ul Normal 0.00-0.03 [facility] [place] Comment on above: Performed By: #### I NSULIN #### [facility] [address] [place] [address] Dr. Sonja Farris IG % 0.3 % Normal 0.0-0.5 [facility] Comment on above: Performed By: #### I NSULIN #### [facility] [address] [place] [address] Dr. Sonja Farris LYMPH # 4.0 103/ul Critically high 1.2-3.8 [facility] Comment on above: Performed By: #### I NSULIN #### [facility] [address] [place] [address] Dr. Sonja Farris Lymphocytes/100 WBC (Bld) 41.1 % Normal 20.5-60.0 [facility] [place] Comment on above: Performed By: #### I NSULIN #### [facility] [address] [place] [address] Dr. Sonja Farris MANUAL DIFF REQ NO Normal [facility] Comment on above: Performed By: #### I NSULIN #### [facility] [address] [address] [address] Sonja Farris MCH (RBC) [Entitic mass] 29.2 pg Normal 25.9-34.0 [facility] [place] Comment on above: Performed By: #### I NSULIN #### [facility] [address] [place] [address] Dr. oSnja Farris MCHC (RBC) [Mass/Vol] 32.0 g/dL Normal 29.9-35.2 [facility] Comment on above: Performed By: #### I NSULIN #### [facility] [address] [place] [address] Dr. Sonja Farris MCV (RBC) [Entitic vol] 91.0 fL Normal 80.0-94.0 [facility] Comment on above: Performed By: #### I NSULIN #### [facility] [address] [place] [address] Dr. Sonja Farris MONO # 0.6 103/ul Normal 0.3-0.8 [facility] [place] Comment on above: Performed By: #### I NSULIN #### [facility] [address] [place] [address] Dr. Sonja Farris Monocytes/100 WBC (Bld) 5.8 % Normal 1.7-12.0 [facility] [place] Comment on above: Performed By: #### I NSULIN #### [facility] [address] [place] [address] Dr. Sonja Farris NEUT # 4.9 103/ul Normal 1.4-6.5 [facility] [place] Comment on above: Performed By: #### I NSULIN #### [facility] [address] [place] [address] Dr. Sonja Farris Neutrophils/100 WBC (Bld) 49.5 % Normal 43.0-75.0 [facility] Comment on above: Performed By: #### I NSULIN #### [facility] [address] [place] [address] Dr. Sonja Farris Platelet mean volume (Bld) [Entitic vol] 9.4 fL Critically low 9.5-13.5 [facility] Comment on above: Performed By: #### I NSULIN #### [facility] [address] [address] [address] Sonja Farris PLT 216 103/ul Normal 150-450 [facility] [place] Comment on above: Performed By: #### I NSULIN #### [facility] [address] [place] [address] Dr. Sonja Farris RBC 5.66 106/ul Normal 4.70-6.10 [facility] [place] Comment on above: Performed By: #### I NSULIN #### [facility] [address] [place] [address] Dr. Sonja Farris WBC 9.8 103/ul Normal 4.0-11.0 [facility] [place] Comment on above: Performed By: #### I NSULIN #### [facility] [address] [place] [address] Dr. Sonja Farris GLYCOHEMOGLOBIN A1Con 2021 ADA RECOMMENDATION SEE BELOW Normal [facility] Comment on above: Result Comment: ADA RECOMMENDED LIMIT 4.0 - 6.0 ADA THERAPEUTIC TARGET < 7.0 ACTION SUGGESTED > 7.0 Performed By: #### I NSULIN #### [facility] [address] [place] [address] Dr. Sonja Farris Glucose [Mass/Vol] 117 mg/dL Normal [facility] Comment on above: Performed By: #### I NSULIN #### [facility] [address] [place] [address] Dr. Sonja Farris HbA1c (Bld) [Mass fraction] 5.7 % Normal 4.5-6.2 [facility] [place] Comment on above: Performed By: #### I NSULIN #### [facility] [address] [place] [address] Dr. Sonja Farris LIPID PROFILEon 08-11-2021 CHOL-HDL RATIO NORM SEE BELOW Normal [facility] Comment on above: Result Comment: 3.3 - 4.4 LOW RISK 4.4 - 7.1 AVERAGE RISK 7.1 - 11.0 MODERATE RISK >11.0 HIGH RISK Performed By: #### I NSULIN #### [facility] [address] [address] [address] Sonja Farris Cholesterol [Mass/Vol] 152 mg/dL Normal <=200 [facility] [place] Comment on above: Performed By: #### I NSULIN #### [facility] [address] [address] [address] Sonja Farris Cholesterol in HDL [Mass/Vol] 26 mg/dL Critically low 40-60 [facility] [place] Comment on above: Performed By: #### I NSULIN #### [facility] [address] [address] [address] Sonja Farris Cholesterol in LDL [Mass/Vol] 85.2 mg/dL Normal [facility] [place] Comment on above: Performed By: #### I NSULIN #### [facility] [address] [address] [address] Sonja Farris Cholesterol.total/Ch olesterol in HDL [Mass ratio] 5.8 {ratio} Normal [facility] [place] Comment on above: Performed By: #### I NSULIN #### [facility] [address] [address] [address] Sonja Farris HDL NORMAL > or = 60 mg/dl - LO W CARDIOVASCULAR RISK <40 mg/dl - HIGH CARDIOVASCULAR RISK Normal [facility] [place] Comment on above: Performed By: #### I NSULIN #### [facility] [address] [address] [address] Sonja Farris LDL CALC NORMAL SEE BELOW Normal [facility] Comment on above: Result Comment: <100 mg/dl OPTIMAL 100 - 129 mg/dl NEAR OR ABOVE OPTIMAL 130 - 159 mg/dl BORDERLINE HIGH 160 - 189 mg/dl HIGH >190 mg/dl VERY HIGH Performed By: #### I NSULIN #### [facility] [address] [address] [address] Sonja Farris Triglyceride [Mass/Vol] 204 mg/dL Critically high <=150 [facility] Comment on above: Performed By: #### I NSULIN #### [facility] [address] [address] [address] Sonja Farris VLDL CALC 40.8 mg/dL Normal [facility] [place] Comment on above: Performed By: #### I NSULIN #### [facility] [address] [address] [address] Sonja Farris PROF 14(COMP METB)on 022 Albumin [Mass/Vol] 3.6 g/dL Normal 3.4-5.0 [facility] Comment on above: Performed By: #### L IPID, URIC, CMP #### [facility] [address] [address] [address] Sonja Farris Albumin/Globulin [Mass ratio] 1.0 {ratio} Normal [facility] [place] Comment on above: Performed By: #### L IPID, URIC, CMP #### [facility] [address] [place] [address] Dr. Sonja Farris ALP [Catalytic activity/Vol] 65 U/L Normal 46-116 [facility] [place] Comment on above: Performed By: #### L IPID, URIC, CMP #### [facility] [address] [address] [address] Sonja Farris ALT [Catalytic activity/Vol] 43 U/L Normal 16-63 [facility] [place] Comment on above: Performed By: #### L IPID, URIC, CMP #### [facility] [address] [place] [address] Dr. Sonja Farris Anion gap [Moles/Vol] 14.6 mmol/L Normal [facility] [place] Comment on above: Performed By: #### L IPID, URIC, CMP #### [facility] [address] [address] [address] Sonja Farris AST [Catalytic activity/Vol] 19 U/L Normal 15-37 [facility] [place] Comment on above: Performed By: #### L IPID, URIC, CMP #### [facility] [address] [place] [address] Dr. Sonja Farris Bilirubin [Mass/Vol] 0.4 mg/dL Normal 0.2-1.0 [facility] [place] Comment on above: Performed By: #### L IPID, URIC, CMP #### [facility] [address] [place] [address] Dr. Sonja Farris Calcium [Mass/Vol] 8.4 mg/dL Critically low 8.5-10.1 [facility] Comment on above: Performed By: #### L IPID, URIC, CMP #### [facility] [address] [address] [address] Sonja Farris Chloride [Moles/Vol] 101 mmol/L Normal 98-107 [facility] [place] Comment on above: Performed By: #### L IPID, URIC, CMP #### [facility] [address] [place] [address] Dr. Sonja Farris CO2 [Moles/Vol] 27.1 mmol/L Normal 21.0-32.0 [facility] Comment on above: Performed By: #### L IPID, URIC, CMP #### [facility] [address] [place] [address] Dr. Sonja Farris Creatinine [Mass/Vol] 0.84 mg/dL Normal 0.70-1.30 [facility] [place] Comment on above: Performed By: #### L IPID, URIC, CMP #### [facility] [address] [place] [address] Dr. Sonja Farris EGFR-AF SAMMARINESE >60 Normal >=60 [facility] Comment on above: Performed By: #### L IPID, URIC, CMP #### [facility] [address] [place] [address] Dr. Sonja Farris EGFR-NON AF SAMMARINESE >60 Normal >=60 [facility] [place] Comment on above: Performed By: #### L IPID, URIC, CMP #### [facility] [address] [place] [address] Dr. Sonja Farris Globulin (S) [Mass/Vol] 3.7 g/dL Normal [facility] [place] Comment on above: Performed By: #### L IPID, URIC, CMP #### [facility] [address] [place] [address] Dr. Sonja Farris Glucose [Mass/Vol] 121 mg/dL Critically high 74-106 [facility] Comment on above: Performed By: #### L IPID, URIC, CMP #### [facility] [address] [address] [address] Sonja Farris Potassium [Moles/Vol] 4.7 mmol/L Normal 3.5-5.1 [facility] Comment on above: Performed By: #### L IPID, URIC, CMP #### [facility] [address] [address] [address] Sonja Farris Protein [Mass/Vol] 7.3 g/dL Normal 6.1-8.2 [facility] Comment on above: Performed By: #### L IPID, URIC, CMP #### [facility] [address] [address] [address] Sonja Farris Sodium [Moles/Vol] 138 mmol/L Normal 136-145 [facility] Comment on above: Performed By: #### L IPID, URIC, CMP #### [facility] [address] [place] [address] Dr. Sonja Farris Urea nitrogen [Mass/Vol] 17.0 mg/dL Normal 7.0-18.0 [facility] [place] Comment on above: Performed By: #### L IPID, URIC, CMP #### [facility] [address] [address] [address] Sonja Farris Urea nitrogen/Creatinine [Mass ratio] 20.2 mg/mg Normal [facility] [place] Comment on above: Performed By: #### L IPID, URIC, CMP #### [facility] [address] [address] [address] Sonja Farris URIC ACID SERUMon 08-11-2021 Urate [Mass/Vol] 5.8 mg/dL Normal 3.5-8.5 [facility] Comment on above: Performed By: #### L IPID, URIC, CMP #### [facility] [address] [place] [address] Dr. Sonja Farris Encounters Encounter Date Encounter Type Care Provider Facility Start: 06-09-2024 End: 06-09-2024 ambulatory Kiera Ayon Facility:[facility] Start: 07-23-2022 End: 07-24-2022 ambulatory KIERA AYON Facility: Start: 08-18-2021 Encounter for genera l adult medical examination without abnormal findings KIERA AYON [facility] Start: 08-11-2021 End: 08-12-2021 ambulatory KIERA AYON Facility:[facility] Start: 08-11-2021 End: 08-12-2021 Encounter for general adult medical examination without abnormal findings KIERA AYON Facility:[facility] Procedures Date Procedure Procedure Detail Performing Clinician Start: 07-23-2022 PSA screening KIERA POST Comment on above: Performed By: #### I NSULIN #### [facility] [address] [address] [address] Sonja Farris Start: 08-11-2021 PSA screening KIERA POST Comment on above: Performed By: #### I NSULIN #### [facility] [address] [address] [address] Sonja Farris Payers Date Payer Category Payer Self-pay 1975 Unknown [id number] 1975 Unknown [id number] 1959 Medicare [id number] 1959 Unknown [id number] Unknown [id number] Summary Purpose Family History No Family History Records FoundNo Family History Records Found Advance Directives No Advanced Directives Records FoundNo Advanced Directives Records Found Additional Source Comments (unrecognized sect ion and content) No Status Records FoundNo Status Records Found INFORMATION SOURCE (unrecogn ized section and content) DATE CREATED AUTHOR [facility]/01/2022 [facility] DATE CREATED AUTHOR AUTHOR'S ORGANIZ ATION 06/12/2024 [facility] FOR RECORDS PERTAINING TO PATIENTS WHO ARE [...] BE BASED ON THE PRIMARY CLINICAL RECORDS. [facility] [employer] [facility]. provides no warranty or guarantee of the accuracy or completeness of information in this document.
[2024-12-05 04:07] LABS: PSA, Free 0.59 ng/mL
== END 2024-12-04 13:26 | disposition home or self-care (01) ==
LOC: LAB 13:27
PROVIDERS: PCP Nurse Practitioner Family; Visit Provider Nurse Practitioner Family
DX: R97.20 Elevated prostate specific antigen [PSA] (principal)
CPT/HCPCS: 36415; 84153; 84154